=== PATIENT | male | born 1965 | race Caucasian/White ===

== ENCOUNTER → 2023-12-12 08:16 | Outpatient (REF) | payer BC, SELFPAY | LOC: RCS 08:16 | PROVIDERS: ATTENDING PHYSICIAN Internal Medicine Cardiovascular Disease; FAMILY PHYSICIAN Family Medicine | DX: I49.3 Ventricular premature depolarization (principal) | CPT/HCPCS: 93017; 93350 ==

== ENCOUNTER → 2023-12-14 14:54 | Outpatient (REF) | payer BC, SELFPAY | LOC: HWRCS 14:54 | PROVIDERS: ATTENDING PHYSICIAN Internal Medicine Cardiovascular Disease; FAMILY PHYSICIAN Family Medicine | DX: I49.3 Ventricular premature depolarization (principal) | CPT/HCPCS: 93306 ==

== ENCOUNTER → 2024-07-25 14:16 | Outpatient (REF) | payer OTHER, SELFPAY | LOC: HWRAD 14:16 | PROVIDERS: ATTENDING PHYSICIAN Family Medicine | DX: M25.461 Effusion, right knee (principal) | CPT/HCPCS: 73564 ==

== ENCOUNTER 2025-05-04 04:38 | Inpatient (IN) | payer OTHER, SELFPAY ==
[2025-05-03 21:53] VITALS: BP 108/67
[2025-05-03 22:17] LABS: Hematocrit 40.1 % (39.0-52.0); Hemoglobin 13.4 g/dL (13.0-18.0); Mean Corp Hgb Conc. 33.4 g/dL (33.0-37.0); Mean Corpuscular Volume 89.3 fL (80.0-94.0); Nucleated Red Blood Cells % 0 % (-); Platelet Count 230 10^3/uL (130-400); Red Cell Dist. Width 11.9 % (11.5-14.5)
[2025-05-03 22:38] LABS: ALT (SGPT) 67 U/L (0-50); AST (SGOT) 44 U/L (17-59); Albumin 4.2 g/dl (3.5-5.0); Alkaline Phosphatase 85 U/L (38-126); Blood Urea Nitrogen 31 mg/dl (9-20); Calcium 9.4 mg/dl (8.4-10.2); Carbon Dioxide 28 mmol/L (22-30); Chloride 102 mmol/L (98-107); Glucose 124 mg/dl (70-99); Potassium 3.7 mmol/L (3.5-5.1); Sodium 134 mmol/L (135-145); Total Protein 6.9 g/dl (6.3-8.2); eGFR > 60.00
[2025-05-03 22:50] LABS: Troponin I < 0.012 ng/ml
[2025-05-04] VITALS (13 sets, daily range): BP systolic 105–149; BP diastolic 60–91; BMI 30.9; BMI 30.7
--- NOTE | 2025-05-04 03:06 | ED.GENMED ---
History of Present Illness
General
Chief Complaint: Chest Pain
Source: patient and spouse
Time Seen by Provider: 05/04/25 02:49
History of Present Illness
History of Present Illness:
59-year-old male who says that Tuesday evening he noticed discomfort in the left tooth/jaw area associated with chest discomfort that felt like a 'pulled muscle'. When he awoke Tuesday morning he was pain-free. He did however go see his dentist
and states that they 'did not see anything'. He was feeling his usual self when he woke this morning. Then, around 2 PM, he noticed tightness in the jaw and chest area that was persistent. This is associated with nausea and lightheadedness. He
denies vomiting, fever, chills, dyspnea, leg swelling. He denies PE risk factors such as recent immobilization, recent trauma, recent surgery, smoking history, family history. The pain does seem worse when he takes a deep breath. He denies
associated diaphoresis, abdominal pain, back pain.
Past History
Past History
ED Past Medical History: None
ED Past Surgical History: None
Social History
Tobacco: Non-smoker
Alcohol: Occasional
Drug: None
Personal:
Living: with family
Employment: Employed
Phy Exam
Physical Exam
Physical Exam:
GENERAL: Alert , in no apparent distress
EYE: pupils equal and reactive
NECK: Supple, no significant adenopathy.
ENT: o/p clr, mmm.
CARDIAC: Regular rate and rhythm .
LUNGS: Clear breath sounds bilaterally, no acute respiratory distress, no wheezes/rales/rhonchi
ABDOMEN: Soft, without focal tenderness, no r/g, no cvat
NEUROLOGICAL: Alert and oriented, no focal neuro deficits
SKIN: Warm and dry, skin intact.
MUSCULOSKELETAL: No edema, well perfused.
PSYCH: Normal and appropriate interaction.
Scores
Heart Score for Chest Pain Patients
STEMI patient?: Yes
Course
Orders/Labs/Results
Orders:
Orders
05/03/25 21:48
Electrocardiogram (*1) Urgent
Reason for Study: Chest Pain
EKG- Treatment ONCE
05/03/25 22:07
C-Reactive Protein Urgent
Comment: ADD ON
Complete Blood Count/With Diff Urgent
Comprehensive Metabolic Panel Urgent
Troponin I Urgent
05/04/25 02:52
EKG [Electrocardiogram (*1)] Urgent
Reason for Study: Chest Pain
EKG- Treatment ONCE
05/04/25 03:00
Cardiac Monitoring- Treatment ONCE
Aspirin 325 mg PO NOW STA
Heparin 5,000 units IV NOW STA
Nitroglycerin Sublingual [Nitrostat (Sublingual)] 0.4 mg SL [id number] PRN
Pulse Ox/cont/shift [RESP] Stat
Quantity: 1
05/04/25 03:01
CR Chest Portable - 1 View Urgent
Comment:
Reason For Exam: cp
Reason Study Needs to be Portable: Unable to Transport
05/04/25 03:06
Complete Blood Count/No Diff Urgent
Erythrocyte Sed Rate Urgent
Comment: ADD ON
Troponin I Urgent
05/04/25 03:10
PTT Urgent
Prothrombin Time Urgent
05/04/25 03:35
Fentanyl Citrate/Pf [Sublimaze] 100 mcg .ROUTE .STK-MED ONE
Heparin 10,000 units .ROUTE .STK-MED ONE
Heparin 1000 Units/500 ml [Heparin] 1,000 units in 500 ml .ROUTE .STK-MED
Heparin Sodium,Porcine/Ns/Pf [Heparin 2000 Units/1000 ml] 2,000 unit in 1,000 ml .ROUTE .STK-MED
Lidocaine HCl/Pf [Xylocaine-Mpf 1% Vial] 100 mg .ROUTE .STK-MED ONE
Midazolam HCl [Versed] 2 mg .ROUTE .STK-MED ONE
Verapamil Injectable [Isoptin/Verapamil Injection] 5 mg .ROUTE .STK-MED ONE
05/04/25 03:36
Nitroglycerin [Tridil] 1,500 mcg .ROUTE .STK-MED ONE
05/04/25 04:01
Ondansetron Injectable [Zofran] 4 mg .ROUTE .STK-MED ONE
05/04/25 04:27
Admit Patient As Directed
Co-Sign Provider:
Level of Care: Inpatient admission
Assign to:: IVU
Physician / Group: Bear/TRACY
Diagnosis: Chest pain, post cardiac cath.
Reason for Hospitalization: Chest pain, post cardiac cath.
Expected length of stay greater than two midnights?: No
ELOS- Estimated Length of Stay in days: 2
I certify the patient meets the requirements for IP care: Yes
Reason for Overnight Stay: Standard of Care
Code Status As Directed
Resuscitation Status: Full Code
Acetaminophen [Tylenol] 650 mg PO Q4HPRN PRN
Fentanyl Citrate/Pf [Sublimaze] 25 mcg IV [id number] PRN
Midazolam HCl [Versed] 1 mg IV Q5MPRN PRN
Nitroglycerin Sublingual [Nitrostat (Sublingual)] 0.4 mg SL [id number] PRN
Oxycodone/Acetaminophen [Percocet 5/325] 1 tablet PO Q4HPRN PRN
Activity As Directed
Activity Level: Out of Bed- Ad Michelle
Activity Frequency: Ad Michelle
Mold Repair Technician Procedure As Directed
Cardiac Cath Procedure: cardiac catheterization
Notify MD As Directed
Notify physician if: immediately for chest pain or bleeding from access site(s)
Radial Artery Hemostasis Method As Directed
Instructions:: 3 mL out at 1 hour post placement of band
3 mL out at 1 1/2 hours post placement of band
3 mL out at 2 hours post placement of band
Off at 2 1/2 hours post placement of band
If any oozing or hemotoma occurs:: re-inflate band and call provider
Site Checks As Directed
Check access site for bleeding/hematoma: Yes
Comment: on arrival, Q15min x4, Q30min x2, Q1 hr x2, Q2 hr x2, Q4 hr or per
protocol
Vascular Checks As Directed
Location: distal to access site - pulse check
Frequency: Other
Comment: on arrival, Q15min x4, Q30min x2, Q1 hr x2, Q2 hr x2, Q4 hr or per protocol
Venous Foot Pumps As Directed
Location: Bilateral feet
Vital Signs As Directed
Frequency: Other
Additional Instructions:: on arrival, Q15min x4, Q30min x2, Q1 hr x2, Q2 hr x2, then Q4 hr or per unit
protocol
PRN Pain Medication Management As Directed
May give lesser potent ordered pain med per pt: Yes
preference::
Protocol:: Medication orders for pain may be administered in a
manner that supports deferring to patient preference
when the pt is:
- Requesting an ordered lesser potent pain medication.
Least to most potent pain medications are defined
as: acetaminophen < NSAID < tramadol < opioids
(morphine, oxycodone, hydromorphone).
- Requesting a lesser dose of the same medication IF
ORDERED.
- Requesting a less intrusive route of administration
if both routes are prescribed by the provider (PO <
IV).
05/04/25 04:28
DX Deep Vein Thrombosis Video Routine
05/04/25 04:30
0.9% Sodium Chloride 1000 ml [Nss] 1,000 ml IV PER PROTOCOL
Infusion rate in mL/kg/hr:: 1.5
Infusion rate in mL/hr:: 155
Duration of infusion (hours):: 3
05/04/25 04:31
Add On- LAB Routine
Tests Added?: CRP, ESR.
Chest PE Study CT [CT Chest PE Study] Stat
Comment:
Reason For Exam: Pleurtic chest pain.
05/04/25 04:32
Echo 2D M-mode Dop w Strain Routine
Reason for Exam: Chest pain, negative cardiac cath, evaluate for effusion.
05/04/25 04:36
Atropine Sulfate [Atropine 0.1 mg/ml Syringe] 1 mg .ROUTE .STK-MED ONE
Phenylephrine HCl/0.9% NaCl [Thierry-Synephrine] 1,000 mcg .ROUTE .STK-MED ONE
05/04/25 Breakfast
Cholesterol Lowering
At Your Request: Full Participation
Cholesterol Lowering: Sodium, 2 Gram
05/04/25 18:00
Atorvastatin [Lipitor] 40 mg PO QPM
05/05/25 08:00
Aspirin Low Dose EC [Aspir Low (Enteric Coated)] 81 mg PO DAILY
Abnormal Lab Results
05/03/25 05/04/25
22:07 03:06
WBC 13.0 H 10^3/uL 14.7 H 10^3/uL
(4.8-10.8) (4.8-10.8)
RBC 4.49 L 10^6/uL 4.61 L 10^6/uL
(4.70-6.10) (4.70-6.10)
MPV 10.7 H fL
(7.4-10.4)
Abs Immat Gran (auto) 0.1 H 10^3/uL
(0-0.05)
Absolute Neuts (auto) 10.0 H 10^3/uL
(1.4-6.5)
Absolute Monos (auto) 1.1 H 10^3/uL
(0.1-0.6)
Neutrophils % 76.6 H %
(42.2-75.2)
Lymphocytes % 12.1 L %
(20.5-51.1)
Sodium 134 L mmol/L
(135-145)
BUN 31 H mg/dl
(9-20)
Glucose 124 H mg/dl
(70-99)
ALT 67 H U/L
(0-50)
C-Reactive Protein 30.50 H mg/L
(0.0-10.00)
05/04/25 03:06
05/03/25 22:07
Vital Signs
Initial and Last Documented VS:
Initial Vital Signs
Temp Pulse Resp BP Pulse Ox
97.5 F 69 18 108/67 98
05/03/25 21:53 05/03/25 21:53 05/03/25 21:53 05/03/25 21:53 05/03/25 21:53
Last Documented Vital Signs
Temp Pulse Resp BP Pulse Ox
98.3 F 68 16 123/79 98
05/04/25 16:50 05/04/25 17:00 05/04/25 16:50 05/04/25 16:56 05/04/25 12:50
*Pulse Oximetry
SaO2: 98
Oxygen Mode of Delivery: Room air
Patient hypoxic: no
*Critical Care Note
Total Time (30-74mins, 75-104mins- exclusive of procedures): 30
Update Note
Update Note:
Patient presents to the Emergency Department with
Number and Complexity of Problems Addressed at the Encounter
� Chronic conditions affecting care:
� Acute Exacerbation and/or Progression of Chronic Illness:
� Differential Diagnosis includes:
Amount and/or Complexity of Data to be Reviewed and Analyzed
� I performed an independent evaluation of and my interpretation is:
EKG: ECG read by me, slight ST elevation inferiorly first ECG, second ECG ST elevations slightly more pronounced. No Q waves noted.
CT:
Xrays:cxr read by me nad
Laboratory Studies: Troponin normal, nonspecific mild abnormality noted of glucose and ALT.
Other:
� Review of other/old records reveals:
� Clinical information was obtained by an independent historian: who is bedside
� Prescriptions/Medications Considered but not given:
� Further testing considered but not performed:
Risk of Complications and/or Morbidity or Mortality of Patient Management
� Social determinants of health affecting care:
� Discussion with other providers (PCP, Hospitalists, Consultants, etc):
� Escalation of care including admission/observation vs risk of discharge considered: 3:06 AM upon presentation to the room patient was changed into a gown and we probably got an ECG which is suggestive of a STEMI. A STEMI alert
was called. I just spoke to Dr. Rangel from cardiology after I sent him a [place] text with a picture of the ECG, he is on his way in.
3:14 AM patient states he has pain only when he breathes in at this time, status post nitro. Vitals remained stable. He is not dyspneic or hypoxic, I highly doubt a PE given lack of risk factors or classic presentation.
[address] Rangel now at bedside, consenting for cath
ED Attending Note
-
Portions of this chart may have been created with voice recognition software.� Occasional wrong word or��sound alike� substitutions may have occurred due to the inherent limitations of voice recognition software.
Discharge Plan
Departure
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
Date of Disposition: 05/04/25
Time of Disposition: 03:27
Admit to: medical lab assistant
Admit to doctor: ngoc
Presentation/result/management discussed w/ accepting /DO: ngoc
Condition: Fair
Discharge Problem:
ST elevation (STEMI) myocardial infarction
Interventions
Interventions:
*General Assessment Last Done: 05/03/25 21:53
*Neglect/Abuse Screening Last Done: 05/03/25 21:53
*ED COVID-19 Vaccine History Last Done: 05/04/25 03:15
*ED Influenza Vaccine History Last Done: 05/04/25 03:15
[facility] Risk Assessment Tool Last Done: 05/04/25 03:20
*Risk Screen - Suicide (C-SSRS) Last Done: 05/03/25 21:53
*Nursing Disposition Last Done: 05/04/25 03:35
ED- Cardiac Assessment Last Done: 05/04/25 03:20
Discharge Date and Time
Discharge Date/Time: 05/04/25 04:23
[2025-05-04] MEDS: ASPIRIN 325 MG PO (03:07)
[2025-05-04] MEDS: HEPARIN 5000 UNITS IV (03:07)
[2025-05-04] MEDS: NITROSTAT (SUBLINGUAL) 0.4 MG SL ×2 (03:07→03:24)
--- NOTE | 2025-05-04 03:34 | HPS.HSE ---
Family Physician
-
Family Physician: Carrie Perez
Chief Complaint
-
Chest pain.
History of Present Illness
59 y/o male with hypertension presenting with chest pain. Patient experienced an episode of chest/jaw pain which he attributed to a dental cause. His pain lasted < 1 day. He saw his dentist but no extractions were performed. He developed
recurrent chest discomfort around 2 PM on 05/03/2025. He presented to [facility] ER that evening. Initial EKG shows some subtle MARLON delfin was interpreted as possible repolarization, pericarditis or injury. While waiting, his chest pain worsened and EKG
was repeated, showing more concerning MARLON inferiorly. STEMI alert was activated. The patient continues to complain of chest discomfort radiating to his left jaw. He denies shortness in breath, palpitations, syncope or presyncope.
He previously underwent stress test and echocardiography in 11/2023 for PVC's, both of which were normal.
DATA:
Stress Echo, 12/12/2023:
CONCLUSIONS
1. Normal stress echo imaging, no evidence of ischemia
2. Normal ST segment response to exercise
3. Normal systolic LV function at baseline, EF 55%. Mild thickening of the
aortic and mitral valves
4. Above average exercise tolerance. Hypertensive blood pressure response.
5. PVCs and couplets
There are no prior stress test available for comparison
TTE, 12/14/2023:
CONCLUSIONS
Normal left ventricular size, wall thickness and systolic function. No regional
wall motion abnormalities are seen. LV ejection fraction is 55-60%.
No significant valvular disease.
No prior study available for comparison.
Medical History
Past Medical History
Past Medical History: Reports Arrhythmia (PVCs), HTN and Hypercholesterolemia
Past Surgical History: Reports None
Social History
Unable to obtain full social history at this time due to: Acuity
Tobacco: Non-smoker
Alcohol: Occasional
Drug: None
Personal:
Living: With Family
Employment: Employed
Family History
Family History: CAD (Father from [place], age 62.)
Allergies / Home Medications
Allergies reflects when Allergies were last updated in [employer].
Home Medications with original date entered in [employer]
Allergy/Medication List:
Home Medications:
Losartan/HCTZ 100/12.5 mg PO daily.
Aspirin 81 mg daily.
Downey 3 1000 mg PO daily.
Vitamin C.
Allergies:
Lisinopril (cough).
Review of Systems
-
History Source: Patient and Family
A 12 point ROS was completed and negative except as noted: Yes
Constitutional: Reports No Symptoms
EENT: Reports See HPI
Respiratory: Reports No Symptoms
Cardiac: Reports Chest Pain
Abdomen/GI: Reports No Symptoms
: Reports No Symptoms
Musculoskeletal: Reports Joint Pain
Skin: Reports No Symptoms
Neurological: Reports No Symptoms
Endocrine: Reports No Symptoms
Hematologic/Lymphatic: Reports No Symptoms
Psych: Reports No Symptoms
Physical Exam
Vital Signs
Vital Signs
Temp Pulse Resp BP Pulse Ox
36.4 C 73 15 106/60 95
05/03/25 21:53 05/04/25 03:30 05/04/25 03:30 05/04/25 03:30 05/04/25 03:30
Physical Exam
General: Well Developed, Well Nourished, No Apparent Distress, Comfortable, Conversant and Good Appetite
HEENT: NormoCephalic, Anicteric, Moist mucous membranes, Atraumatic, PERRLA, [place] Conjunctivae, No Ptosis and Nose Appears Normal
Respiratory: Clear and Non Labored Respirations
Cardiac: S1/S2 and Regular Rhythm
Breast: Deferred by me
GI: Soft, Non Tender, Non Distended and Normal Bowel Sounds
Rectal: Deferred by Provider
Genito-urinary: Deferred by me
Musculoskeletal: No Clubbing, No Cyanosis and No Edema
Skin: Warm and Dry
Neuro: AO x 3
Hematologic/Lymphatic: No Lymphadenopathy
Psych: Calm and Intact Judgment/Insight
Laboratory Results
-
05/03/25 22:07
Laboratory Results
Total Bilirubin 0.5 mg/dl (0.2-1.3) 05/03/25 22:07
AST 44 U/L (17-59) 05/03/25 22:07
ALT 67 U/L (0-50) H 05/03/25 22:07
Alkaline Phosphatase 85 U/L (38-126) 05/03/25 22:07
Troponin I < 0.012 ng/ml 05/03/25 22:07
Data Reviewed
-
Medical Tests (Nuc Med, Echo, EKG etc): Image Personally Visualized and interpreted, Report Reviewed by me and Discussed with Physician
Lab Data: Labs Reviewed by me, Discussed with Physician, Discussed with Patient and Discussed with Family
Old Records: Reviewed
Impression/Plan
-
Impression/Plan: 59 y/o male with HTN and HLD presenting with chest pain and EKG concerning for inferior STEMI.
#Inferior STEMI
-Acute, threat to life.
-Urgent coronary angiography.
-Consent is signed and on chart.
-Further instructions to follow.
#HTN
-Chronic, stable.
-Titrate medication post cath.
#HLD
-Chronic, stable.
-Likely start high dose, high potency statin.
[2025-05-04 03:37] LABS: INR 1.04; PT 13.7 Sec (11.4-14.6)
[2025-05-04 03:38] LABS: APTT 28.4 Sec (23.4-35.0)
[2025-05-04 03:58] LABS: Troponin I < 0.012 ng/ml
[2025-05-04 04:17] LABS: Hematocrit 41.3 % (39.0-52.0); Hemoglobin 13.9 g/dL (13.0-18.0); Mean Corp Hgb Conc. 33.7 g/dL (33.0-37.0); Mean Corpuscular Volume 89.6 fL (80.0-94.0); Platelet Count 245 10^3/uL (130-400); Red Cell Dist. Width 12.0 % (11.5-14.5)
--- NOTE | 2025-05-04 04:32 | ITS.CL.CATH ---
Senior Staff Accountant - Catheterization
Cardiac Catheterization
Procedure Report:
CARDIAC CATHETERIZATION REPORT
Date of Procedure: 05/04/2025
Referring: Altagracia Valadez M.D.
INDICATION: Chest pain, concern for inferior IL.
PROCEDURE:
1. Left heart catheterization
2. Coronary angiography.
3. Left ventriculography.
A total of 27 minutes of procedural/moderate sedation was utilized. An independent resident medical officer was present to assist with and help manage the patient's level of consciousness and physiologic status.
ACCESS:
1. 6 [place] right radial artery using a modified Seldinger technique.
CATHETERS:
1. 5 [place] JR4.
2. 5 [place] JL 3.5.
3. 5 [place] MP 2.
HEMODYNAMIC DATA
Weight (kg): 103.3
AO (s/d/x, mmHg): 100/70/86
LV (s/x mmHg): 102/33
AV gradient (x, mmHg): None.
LEFT VENTRICULOGRAPHY: Performed in an BRENNA[place] projection. Normal left ventricular size and systolic function. There is no evidence of regional hypokinesis. Left ventricular ejection fraction estimated at 70%. There is no mitral valve
regurgitation. There is no aortic valve insufficiency. The aortic root, ascending aorta and visualized ascending aorta appear normal.
CORONARY ANGIOGRAPHY
Dominance: Right.
Left Main: Congenitally absent.
LAD: Large size vessel arising directly from the left coronary sinus and giving rise to a large first diagonal which supplies the majority of the anterolateral wall. There are minor luminal irregularities in the mid LAD after the origin of
the master septal.
Ramus: Congenitally absent.
Circumflex: Medium size vessel within aberrant origin in the right coronary cusp, immediately medial and inferior to the origin of the right coronary artery, best engaged with a multipurpose to catheter. The artery is essentially 2 obtuse
marginals with no evidence of coronary artery disease.
RCA: Large size, dominant vessel with a large posterolateral arcade. There is no coronary artery disease.
INTERVENTION(S)
None.
Closure Device: Vascular band.
Radiation (mGy): 714
DAP (cm2.Gy): 38.2
Fluoroscopy time (minutes): 7.3
CONCLUSIONS
1. 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
2. Normal left ventricular size and systolic function. Left ventricular ejection fraction estimated at 70%.
3. Severely elevated filling pressures (LVEDP = 33 mmHg at 103.3 kg).
RECOMMENDATIONS:
1. Expectant management after cardiac catheterization via right radial approach.
2. Limited weight bearing on the right wrist for one week.
3. Continue evaluation for nonischemic causes of chest discomfort, including pericarditis/myocarditis as well as pulmonary embolism. Another possibility is esophageal spasm.
4. ESR/CRP have been ordered.
5. Check CT PE protocol.
6. Echocardiogram ordered and pending.
7. Cautious diuresis with furosemide 40 mg IV x 1 given severe elevation of filling pressures.
Copy to: Altagracia Valadez M.D., Carrie Perez D.O.
Norm Sifuentes DO, FACC, FACP
[2025-05-04] MEDS: NSS 1000 IV (04:42)
[2025-05-04] MEDS: LASIX 40 MG IV (05:44)
[2025-05-04 05:57] LABS: C-Reactive Protein 30.50 mg/L (0.0-10.00)
--- NOTE | 2025-05-04 06:00 | PTCARENOTE ---
received the patient from the laborer general. AAOx3. denies any cp at rest. complains of chest pain, 3/10, on inhalation. lungs clear. 99% on RA. SR on tele 60s. bp stable. R radial site intact with an external pressure device. reviewed activity
restrictions with patient.
CT chest ordered. RN took patient to CT and back. resting comfortably in bed at this time.
[2025-05-04] MEDS: TYLENOL 650 MG PO (11:55)
[2025-05-04] MEDS: MOTRIN 600 MG PO ×2 (13:33→22:14)
--- NOTE | 2025-05-04 17:11 | PTCARENOTE ---
Pt received this am with no c/o of any chest pain, jaw pain or sob. SR, rate in the 60's to 80's. OOB ad subhash. No c/o offered.
[2025-05-04] MEDS: LIPITOR 40 MG PO (17:18)
[2025-05-04] MEDS: COLCHICINE 0.6 MG PO (19:39)
[2025-05-05 00:19] VITALS: BP 135/85
--- NOTE | 2025-05-05 00:38 | PTCARENOTE ---
assumed care of the patient at the beginning of the shift. AAOx3. states feeling much better. eager to go home. mild chest pain with inhalation- 0-1/10 per patient. SR on tele 60s. bp stable. R radial site CDI. independent in the room. answered all
questions. at the bedside.
at approx 2350, RN noticed patient in an Afib rhythm on tele. patient asleep. asymptomatic. EKG completed and confirm Afib. patient states no history of afib. rates controlled- 90s-100s. bp 135/85. updated Dr. Gonzales via TT. will monitor for
patient- no new orders at this time. discussed with patient. educated to call with any new symptoms. call wilkinson within reach.
[2025-05-05 05:26] VITALS: BP 116/80
[2025-05-05] MEDS: MOTRIN 600 MG PO (05:52)
--- NOTE | 2025-05-05 06:16 | PTCARENOTE ---
patient converted back to SR at approx 0350. at this time, remains in SR 70s. bp 116/80.
[2025-05-05 06:22] LABS: Hematocrit 36.1 % (39.0-52.0); Hemoglobin 12.0 g/dL (13.0-18.0); Mean Corp Hgb Conc. 33.2 g/dL (33.0-37.0); Mean Corpuscular Volume 90.5 fL (80.0-94.0); Platelet Count 193 10^3/uL (130-400); Red Cell Dist. Width 12.0 % (11.5-14.5)
[2025-05-05 06:35] LABS: Blood Urea Nitrogen 16 mg/dl (9-20); Calcium 8.8 mg/dl (8.4-10.2); Carbon Dioxide 27 mmol/L (22-30); Chloride 103 mmol/L (98-107); Estimated Creatinine Clearance > 125 ml/min; Glucose 106 mg/dl (70-99); Potassium 4.0 mmol/L (3.5-5.1); Sodium 137 mmol/L (135-145); eGFR > 60.00
[2025-05-05 07:57] VITALS: BP 118/87
[2025-05-05 08:00] VITALS: BMI 30.7
--- NOTE | 2025-05-05 08:06 | W.PN.CD ---
Today's Communication / Plan
-
Outpatient echocardiogram.
Transition to high dose aspirin taper.
Colchicine 0.6 mg BID x 3 months.
D/C losartan/HCTZ and start carvedilol 6.25 mg BID.
Hold therapeutic anticoagulation at this time.
Outpatient extended Holter monitor.
Pantoprazole 40 mg PO daily while on aspirin taper.
Continue furosemide 40 mg PO daily.
Outpatient BMP in one week.
Atorvastatin 40 mg PO daily. Goal LDL < 55.
Impression / Plan
-
Impression/Plan: 59 y/o male with HTN, HLD admitted with suspected STEMI, s/p cardiac catheterization showing no CAD.
#Chest Pain/Abnormal EKG/Pericarditis
-Acute.
-Cardiac catheterization negative for obstructive CAD. Severely elevated filling pressures (LVEDP = 33 mmHg).
-EKG shows subtle MARLON, not specifically in any coronary territory.
-CTPE negative for PE but does show pericardial effusion/stranding. CRP elevated at 30.50. This is consistent with acute pericarditis.
-High dose ibuprofen ordered. In light of non-obstructive CAD, would favor transitioning to high dose ASA taper as follows:
-975 mg TID x 2 weeks, then
-675 mg TID x 1 week, then
-325 mg TID x 1 week, then
-325 mg BID x 1 week, then
-325 mg daily x 1 week, then
-81 mg daily indefinitely.
-Colchicine 0.6 mg BID x 3 months.
-Outpatient echocardiogram.
#Severely elevated filling pressures
-Acute.
-LVEDP = 33 mmHg at the time of cath.
-Transition to furosemide 40 mg PO daily.
-BMP in one week to monitor renal function.
#Atrial fibrillation
-New diagnosis.
-Spontaneously converted to NSR. Unclear if this is related to pericarditis or true PAF.
-Rate/rhythm control: Start carvedilol 6.25 mg BID.
-CHADS2-Vasc = 2 (HTN, non-obstructive CAD).
-Given need for high dose aspirin taper, uncertainty regarding situational component of AF and low daily likelihood of embolic event off of anticoagulation (0.002%/day), we will withhold therapeutic anticoagulation and order an outpatient 2 week
Holter monitor to establish the diagnosis of PAF/situational AF.
#HTN
-Chronic, stable.
-D/C losartan/HCTZ.
-Start carvedilol 6.25 mg BID to assist with BP and rate control.
#HLD
-Chronic.
-Lipid panel pending.
-Non-obstructive CAD on cath.
-Start atorvastatin 40 mg PO daily.
-Goal LDL < 55.
#PPx:
-Start pantoprazole 40 mg PO while on high dose aspirin.
-SCD's for DVT/VTE.
#Dispo
-IVU status.
-Full code.
-Likely discharge today.
Subjective/Interval History:
Patient went into atrial fibrillation overnight, spontaneously converted early this morning.
Diuresis started. Weight is down 0.7 kg from admission.
CTPE negative for PE, does acknowledge a pericardial effusion with stranding consistent with pericarditis.
CRP severely elevated at 30.50.
Patient started on high dose ibuprofen taper and colchicine.
DATA:
Cardiac catheterization, 05/04/2025:
CONCLUSIONS
1. 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
2. Normal left ventricular size and systolic function. Left ventricular ejection fraction estimated at 70%.
3. Severely elevated filling pressures (LVEDP = 33 mmHg at 103.3 kg).
CTPE, 05/04/2025:
IMPRESSION:
1. No evidence of pulmonary embolism.
2. Mild left basilar atelectasis.
3. Small pericardial effusion. There is a suggestion of slight stranding along the pericardium which can be seen with pericarditis/inflammation.
4. 3 mm solid nodule within the left upper lobe of the lung which is nonspecific and may be infectious/inflammatory nature. If the patient is considered high risk a follow-up CT chest in 12 months may be considered to ensure stability per [facility]
guidelines.
Physical Exam
Vital Signs/Labs
Vital Signs
Temp Pulse Resp BP Pulse Ox
36.8 C 63 20 128/84 98
05/05/25 07:57 05/04/25 23:00 05/05/25 07:57 05/04/25 22:15 05/05/25 07:57
05/03/25 05/04/25 05/05/25
11:59 11:59 11:59
Actual Weight 102.6 kg
05/05/25 05:25
05/05/25 05:25
PT 13.7 Sec (11.4-14.6) 05/04/25 03:10
INR 1.04 05/04/25 03:10
APTT 28.4 Sec (23.4-35.0) 05/04/25 03:10
LAB Results
05/03/25 05/04/25
22:07 03:06
Troponin I < 0.012 < 0.012
Physical Exam
Constitutional: No acute distress and Comfortable
EENT: Anicteric and Moist mucous membranes
Cardiovascular: Rhythm & rate is regular, Pedal edema is absent, JVD pressure is normal, S1S2 is normal and Murmur/rub/gallop absent
Respiratory: Respiratory effort normal, Lungs clear to auscul., Wheeze Absent, Crackles Absent and Rhonchi Absent
GI: Soft, Distention absent, Flat, Non tender and Normal bowel sounds
Neuro/Psych: AO x 3
Other: Cath Site (Right radial access site is C/D/I.)
Data Reviewed
-
Date of Service: May 05, 2025
Medical Decision Making: Reviewed Test Results, Independent Historian Assessment and Test Interpretation
EKG: Tracing Personally Visualized and interpreted and Report Reviewed by me
Echo: Ordered by me
X-Ray/CT/US/MRI/NUC/PET: Image Personally Visualized and interpreted and Report Reviewed by me
Medical Tests (PFT, Pathology etc): Image Personally Visualized and interpreted and Report Reviewed by me
Labs: Labs Reviewed by me
Old Records: Reviewed
[2025-05-05] MEDS: ASPIR LOW (ENTERIC COATED) 81 MG PO (08:09)
[2025-05-05] MEDS: COLCHICINE 0.6 MG PO (08:09)
[2025-05-05] MEDS: COREG 6.25 MG PO (09:17)
[2025-05-05 09:23] VITALS: BP 126/93
--- NOTE | 2025-05-05 10:38 | W.DS.TRANS ---
Addendum entered and electronically signed by Norm Sifuentes DO 05/05/25 15:28:
DC summary dictation #[id number].
Original Note:
DC Summary - [employer]
-
Discharge Instructions:
Discharge Diagnosis/Procedures Acute pericarditis, s/p cardiac catheterization,
cardiac volume overload, paroxysmal atrial
fibrillation.
Diet Low Cholesterol,Low Fat,2 Gram Sodium
Driving Restrictions As prior to admission
Bathing Restrictions None
Blood Work Basic metabolic profile in one week (after 05/12
/2024).
Others Tests Transthoracic Echocardiogram, Extended Holter
Monitor/CAM (will be mailed to you).
Specialty Instructions Weigh Daily
Instructions:
Stand-Alone Forms: DC Instructions- Cath/EP Lab
Changes to Home Medications: Yes
Discharge Medications:
DC Medications w/original date entered in [employer]
aspirin 81 mg tablet 81 mg PO DAILY 05/04/25
Held on 05/05/25. Instructions: Resume on 06/16/25. Resume aspirin 81 mg daily after completing the high dose aspirin taper.
aspirin 325 mg tablet 975 mg (3 x 325 mg) PO TID Anti-inflammatory 14 days #210 tabs 05/05/25
atorvastatin 40 mg tablet 40 mg PO QPM High cholesterol #90 tabs 05/05/25
carvedilol 6.25 mg tablet 6.25 mg PO BID Arrhythmia #180 tabs 05/05/25
colchicine 0.6 mg tablet 0.6 mg PO BID Anti-inflammatory 3 months #180 tabs 05/05/25
furosemide 40 mg tablet (Lasix) 40 mg PO DAILY Volume overload #90 tabs 05/05/25
pantoprazole 40 mg tablet,delayed release 40 mg PO DAILY #90 tabs 05/05/25
Home Medication Changes
Please stop taking losartan/hydrochlorothiazide.
Please start taking carvedilol 6.25 mg twice daily.
Please start taking colchicine 0.6 mg twice daily for 3 months.
Please start taking pantoprazole 40 mg daily for 3 months.
Please start furosemide 40 mg daily.
Please hold your low dose aspirin 81 mg daily until completing the high dose aspirin taper.
Please start taking a high dose aspirin taper as follows:
Aspirin 975 mg three times daily for 14 days, then
Aspirin 650 mg three times daily for 7 days, then
Aspirin 325 mg three times daily for 7 days, then
Aspirin 325 mg twice daily for 7 days, then
Aspirin 325 mg daily for 7 days, then
resume Aspirin 81 mg daily indefinitely.
Pending Results: Yes
Additional Pending Results:
Please have your blood drawn in one week to monitor kidney function and potassium levels after starting furosemide.
Please have an echocardiogram performed to assess your heart function and valve function.
You will me mailed a 14 day heart rhythm monitor. Please complete the monitor and mail it back to assess if your atrial fibrillation is paroxysmal or situational.
[2025-05-05 11:13] VITALS: BP 148/91
--- NOTE | 2025-05-05 11:30 | PTCARENOTE ---
Pt received this am oob ad subhash. Denies any sob or pain. Room air sat 98%. SR, rate in the 70's to 80's. Pt discharged to home with his . Discharge instructions given and reviewed with good understanding and all questions answered.
[2025-05-05 12:47] LABS: HDL Cholesterol 50 mg/dl; LDL Cholesterol, Calculated 68 mg/dl; Very Low Density Lipoprotein 16 mg/dl (0-30)
== END 2025-05-05 11:30 | disposition home or self-care (01) | DRG 287 ==
LOC: IVU 04:38
PROVIDERS: Nurse Practitioner; Student in an Organized Health Care Education/Training Program; ADMITTING PHYSICIAN Internal Medicine Cardiovascular Disease; EMERGENCY PHYSICIAN Emergency Medicine; FAMILY PHYSICIAN Family Medicine
PROC: B2151ZZ Fluoroscopy of Left Heart using Low Osmolar Contrast (ICD-10-PCS; 2025-05-04)
PROC: B2111ZZ Fluoroscopy of Multiple Coronary Arteries using Low Osmolar Contrast (ICD-10-PCS; 2025-05-04)
PROC: 4A023N7 Measurement of Cardiac Sampling and Pressure, Left Heart, Percutaneous Approach (ICD-10-PCS; 2025-05-04)
DX: I30.9 Acute pericarditis, unspecified (principal); J98.11 Atelectasis; Q24.5 Malformation of coronary vessels; I10 Essential (primary) hypertension; I48.0 Paroxysmal atrial fibrillation; E87.70 Fluid overload, unspecified; I25.10 Atherosclerotic heart disease of native coronary artery without angina pectoris; Z79.899 Other long term (current) drug therapy
CPT/HCPCS: 71045; 71275; 80048; 80053; 80061; 84484; 85025; 85027; 85610; 85652; 85730; 86140; 93005; 93458; 96374; 99152; 99153; 99291; C1769; C1894; Q9967

== ENCOUNTER → 2025-05-07 08:02 | Outpatient (REF) | payer OTHER, SELFPAY | LOC: CATH 08:02 | PROVIDERS: ATTENDING PHYSICIAN Internal Medicine Cardiovascular Disease; FAMILY PHYSICIAN Family Medicine | DX: I30.0 Acute nonspecific idiopathic pericarditis (principal); I48.0 Paroxysmal atrial fibrillation; I25.10 Atherosclerotic heart disease of native coronary artery without angina pectoris; E87.79 Other fluid overload | CPT/HCPCS: 93306 ==